=== PATIENT | female | born 1970 | race Caucasian/White ===

== ENCOUNTER 2021-04-01 10:49 | Day surgery (SDC) | payer OTHER ==
[~2021-04-01] VITALS: Ht 175.3 cm; Wt 95.3 kg
[2021-04-01] MEDS ORDERED: diphenhydrAMINE 50 MG/ML VIAL ONE (12:21)
[2021-04-01] MEDS ORDERED: fentaNYL citrate 0.05 MG/ML VIAL ONE (12:22)
[2021-04-01] MEDS ORDERED: MIDAZOLAM 5 MG/5 ML VIAL ONE (12:22)
[2021-04-01] MEDS ORDERED: LIDOCAINE 2% 100 MG/5 ML UJET TP ONE (12:22)
[2021-04-01] MEDS ORDERED: fentaNYL citrate 0.05 MG/ML VIAL IVP ONE (15:00)
[2021-04-01] MEDS ORDERED: MIDAZOLAM 2 MG/2 ML VIAL IVP ONE (15:00)
== END 2021-04-01 15:30 | disposition home or self-care (01) ==
LOC: MMU 10:49 → MDS 10:49
PROVIDERS: ATTEND Internal Medicine Gastroenterology
DX: R19.5 Other fecal abnormalities (principal); K63.5 Polyp of colon; I10 Essential (primary) hypertension; M19.90 Unspecified osteoarthritis, unspecified site; M10.9 Gout, unspecified; Z87.891 Personal history of nicotine dependence; Z79.899 Other long term (current) drug therapy
CPT/HCPCS: 45385; 88305; J2250; J3010; J1200